=== PATIENT | female | born 1995 | race Caucasian/White ===

== ENCOUNTER 2020-12-19 16:16 | Inpatient (IN) | payer BC ==
[2020-12-19] MEDS: Lactated Ringers 1,000 ML IV SCH ×2 (17:00→23:55)
[2020-12-19] MEDS ORDERED: Water For Irrigation,Sterile 1,000 ML Container IRR PRN (17:23)
[2020-12-19] MEDS ORDERED: Sodium Chloride 0.9% 10 ML SDV IV PRN (17:23)
[2020-12-19] MEDS ORDERED: Sodium Chloride 0.9% 10 ML Syringe FLUSH PRN (17:23)
[2020-12-19] MEDS ORDERED: Carboprost Tromethamine 250 MCG/1 ML Amp IM PRN (17:23)
[2020-12-19] MEDS ORDERED: Lidocaine 1% 50 ML MDV INJECT PRN (17:23)
[2020-12-19] MEDS ORDERED: Misoprostol 200 MCG Tab PO PRN (17:23)
[2020-12-19] MEDS ORDERED: Ampicillin 2 GM in Sodium Chloride 0.9% 100 ML IV ONE (17:23)
[2020-12-19] MEDS ORDERED: Ondansetron 4 MG/2 ML SDV IVPUSH PRN (17:23)
[2020-12-19] MEDS ORDERED: Misoprostol 25 MCG (1/4 of 100 MCG) Tab VAG PRN ×2 (17:23)
[2020-12-19] MEDS ORDERED: Terbutaline 1 MG/ML SDV SUBCUT PRN (17:23)
[2020-12-19] MEDS ORDERED: Butorphanol 1 MG/ML SDV IVPUSH PRN (17:23)
[2020-12-19] MEDS ORDERED: Sodium Chloride 0.9% 2.5 ML Syringe FLUSH PRN (17:23)
[2020-12-19] MEDS ORDERED: Tranexamic Acid 1,000 MG in Sodium Chloride 0.9% 100 ML IV PRN (17:23)
[2020-12-19] MEDS ORDERED: Methylergonovine 0.2 MG/1 ML Amp IM PRN (17:23)
[2020-12-19] MEDS ORDERED: Oxytocin/0.9 % Sodium Chloride 30 UNIT/500 ML BAG IV SCH ×2 (17:30)
[2020-12-19] MEDS ORDERED: Ampicillin 2 GM Vial ONE (18:02)
[2020-12-19] MEDS ORDERED: Sodium Chloride 0.9% 100 ML ONE (18:04)
[2020-12-19] MEDS ORDERED: Ampicillin 1 GM in Sodium Chloride 0.9% 50 ML IV SCH (22:00)
[2020-12-20] MEDS ORDERED: Ibuprofen 400 MG Tab PO PRN (01:15)
[2020-12-20] MEDS ORDERED: Benzocaine/Menthol 20%-0.5% Spray 78 GM Cannister TOP PRN (01:15)
[2020-12-20] MEDS ORDERED: Acetaminophen 500 MG Tab PO PRN (01:15)
[2020-12-20] MEDS ORDERED: Lanolin 100% Cream 7 GM Tube TOP PRN (01:15)
[2020-12-20] MEDS ORDERED: Bisacodyl 10 MG Supp RECTAL PRN (01:15)
[2020-12-20] MEDS ORDERED: oxyCODONE 5 MG Tab PO PRN (01:15)
[2020-12-20] MEDS ORDERED: Witch Hazel Medicated Pads 40/Jar TOP PRN (01:15)
[2020-12-20] MEDS: Acetaminophen 500 MG Tab PO PRN ×3 (01:38→20:05)
[2020-12-20] MEDS: Ibuprofen 800 MG Tab PO PRN ×3 (01:39→23:00)
--- NOTE | 2020-12-20 02:48 | OR ---
SURGEON: Montez Nielsen MD DATE OF PROCEDURE: 12/20/2020 INDICATION FOR PROCEDURE: A 25-year-old G3, P2-0-0-2 at 40 weeks and 3 days, admitted for elective induction of labor. The patient reported leakage of small amount of fluid starting this morning, but was confirmed to have intact membranes with negative AmniSure. She was 3, 70, -2 and was started on Pitocin for induction of labor. She is GBS positive and received 2 doses of ampicillin. She otherwise had an uncomplicated . The patient became 5 cm dilated after about 5 hours with mild contractions, she then progressed very quickly. After about 30 minutes, she was fully dilated and having the urge to push and quickly delivered per nurse report. PREOPERATIVE DIAGNOSES: Morris intrauterine at 40 weeks and 3 days. POSTOPERATIVE DIAGNOSES: Morris intrauterine at 40 weeks and 3 days. PROCEDURES PERFORMED: Normal spontaneous vaginal delivery, repair of second-degree laceration. ANESTHESIA: Local anesthesia. FINDINGS: Viable female infant, score of 9 and 9. weight of 3530 g. ESTIMATED BLOOD LOSS: 300 mL. DESCRIPTION OF PROCEDURE: Upon my arrival to Labor and Delivery, the baby was doing well on the mom's chest. Appeared to be pink, crying, and moving all extremities. Per nurse report, did not have any complications during delivery. The umbilical cord was clamped and cut. Attempted to get umbilical cord gases, was only able to collect venous gases. The placenta was removed with gentle traction on the umbilical cord. Perineum was examined and she has a second-degree laceration. 20 mL of 1% lidocaine with epi was used for local anesthesia. Second degree was repaired with 3-0 Vicryl in usual fashion and hemostasis was confirmed after repair. The fundus was firm and below the umbilicus. The bleeding was light. The patient tolerated the procedure well, was given care instructions. QUINTIN / YAKELIN /[id number] MTDDante
[2020-12-20] MEDS: Docusate Sodium 100 MG Cap PO PRN ×2 (08:03→20:05)
[2020-12-21] MEDS: Acetaminophen 500 MG Tab PO PRN ×2 (03:15→10:13)
[2020-12-21] MEDS: Docusate Sodium 100 MG Cap PO PRN (10:13)
--- NOTE | 2020-12-21 13:14 | PCM.PNPP ---
- General Info Date of Service: 12/21/20 Subjective Update: Patient seen at bedside , bonding well with baby , , Normal lochia Functional Status: Reports: Pain Controlled, Tolerating Diet, Ambulating, Urinating - Review of Systems General: Reports: No Symptoms HEENT: Reports: No Symptoms Pulmonary: Reports: No Symptoms Cardiovascular: Reports: No Symptoms Gastrointestinal: Reports: No Symptoms Genitourinary: Reports: No Symptoms Musculoskeletal: Reports: No Symptoms Skin: Reports: No Symptoms Neurological: Reports: No Symptoms Psychiatric: Reports: No Symptoms - General Info Date of Service: 12/21/20 - Patient Data Vital Signs - Most Recent: Last Vital Signs Temp 35.8 C L 12/21/20 07:00 Pulse 67 12/21/20 07:00 Resp 18 12/21/20 07:00 BP 112/50 L 12/21/20 07:00 Pulse Ox 98 12/21/20 07:00 Weight - Most Recent: 84.822 kg Lab Results - Last 24 Hours: Laboratory Results - last 24 hr 12/19/20 12/21/20 Range/Units 17:00 05:03 Hgb 10.0 L (12.0-16.0) g/dL Hct 33.4 L (36.0-46.0) % RPR Non-Reac (Non-Reac) Med Orders - Current: Current Medications Acetaminophen (Acetaminophen 500 Mg Tab) 500 mg PO Q4H PRN PRN Reason: Pain (mild 1-3) Acetaminophen (Acetaminophen 500 Mg Tab) 1,000 mg PO Q4H PRN PRN Reason: Pain (mild 1-3) Last Admin: 12/21/20 10:13 Dose: 1,000 mg Documented by: Benzocaine/Menthol (Benzocaine/Menthol 20%-0.5% [place] 78 Gm Cannister) 78 gm TOP ASDIRECTED PRN PRN Reason: Perineal Comfort Measure Last Admin: 12/20/20 01:34 Dose: 1 can Documented by: Bisacodyl (Bisacodyl 10 Mg Supp) 10 mg RECTAL ONETIME PRN PRN Reason: Constipation Docusate Sodium (Docusate Sodium 100 Mg Cap) 100 mg PO Q12H PRN PRN Reason: Constipation Last Admin: 12/21/20 10:13 Dose: 100 mg Documented by: Emollient Ointment (Lanolin 100% Cream 7 Gm Tube) 0 gm TOP ASDIRECTED PRN PRN Reason: Sore Nipples Last Admin: 12/20/20 08:03 Dose: 7 gm Documented by: Oxytocin/Sodium Chloride (Oxytocin 30 Unit/500 Ml-Ns) 30 unit in 500 mls @ 2 mls/hr IV TITRATE ANAND; Protocol Last Titration: 12/19/20 21:30 Dose: 8 munits/min, 8 mls/hr Documented by: Ampicillin Sodium 1 gm/ Sodium (Chloride) 50 mls @ 100 mls/hr IV Q4H ANAND Last Admin: 12/19/20 22:07 Dose: 100 mls/hr Documented by: Ibuprofen (Ibuprofen 400 Mg Tab) 400 mg PO Q4H PRN PRN Reason: Pain (mild 1-3) Ibuprofen (Ibuprofen 800 Mg Tab) 800 mg PO Q6H PRN PRN Reason: Pain (mild 1-3) Last Admin: 12/20/20 23:00 Dose: 800 mg Documented by: Misoprostol (Misoprostol 25 Mcg (1/4 Of 100 Mcg) Tab) 25 mcg VAG ONETIME PRN PRN Reason: Cervical Ripening Misoprostol (Misoprostol 25 Mcg (1/4 Of 100 Mcg) Tab) 25 mcg VAG Q4H PRN PRN Reason: Cervical Ripening Oxycodone HCl (Oxycodone 5 Mg Tab) 5 mg PO Q2H PRN PRN Reason: Pain (severe 7-10) Sodium Chloride (Sodium Chloride 0.9% 10 Ml Syringe) 10 ml FLUSH ASDIRECTED PRN PRN Reason: Keep Vein Open Sodium Chloride (Sodium Chloride 0.9% 2.5 Ml Syringe) 2.5 ml FLUSH ASDIRECTED PRN PRN Reason: Keep Vein Open Sodium Chloride (Sodium Chloride 0.9% 10 Ml Sdv) 10 ml IV ASDIRECTED PRN PRN Reason: IV Use Terbutaline Sulfate (Terbutaline 1 Mg/Ml Sdv) 0.25 mg SUBCUT ASDIRECTED PRN PRN Reason: Tacysystole [place] ([place] Medicated Pads 40/Jar) 1 pad TOP ASDIRECTED PRN PRN Reason: comfort care Last Admin: 12/20/20 01:35 Dose: 1 can Documented by: Discontinued Medications Ampicillin Sodium (Ampicillin 2 Gm Vial) Confirm Administered Dose 2 gm .ROUTE .[facility] ONE Stop: 12/19/20 18:03 Last Admin: 12/19/20 18:16 Dose: 2 gm Documented by: Butorphanol Tartrate (Butorphanol 1 Mg/Ml Sdv) 1 mg IVPUSH Q1H PRN PRN Reason: Pain (severe 7-10) Carboprost Tromethamine (Carboprost Tromethamine 250 Mcg/1 Ml Amp) 250 mcg IM ASDIRECTED PRN PRN Reason: Post Hemorrhage Oxytocin/Sodium Chloride (Oxytocin 30 Unit/500 Ml-Ns) 30 unit in 500 mls @ 999 mls/hr IV TITRATE [facility] Tranexamic Acid 1,000 mg/ (Sodium Chloride) 110 mls @ 660 mls/hr IV ONETIME PRN PRN Reason: Bleeding Ampicillin Sodium 2 gm/ Sodium (Chloride) 100 mls @ 200 mls/hr IV ONETIME ONE Stop: 12/19/20 17:52 Lactated Ringer's (Ringers, Lactated) 1,000 mls @ 150 mls/hr IV ASDIRECTED [facility] Last Admin: 12/19/20 23:55 Dose: 150 mls/hr Documented by: Sodium Chloride (Normal Saline) Confirm Administered Dose 100 mls @ as directed .ROUTE .STK-MED ONE Stop: 12/19/20 18:05 Last Admin: 12/19/20 18:17 Dose: 200 mls/hr Documented by: Lidocaine HCl (Lidocaine 1% 50 Ml Mdv) 50 ml INJECT ONETIME PRN PRN Reason: Laceration repair Last Admin: 12/20/20 00:53 Dose: 50 ml Documented by: Methylergonovine Maleate (Methylergonovine 0.2 Mg/1 Ml Amp) 0.2 mg IM ASDIRECTED PRN PRN Reason: Post Hemorrhage Misoprostol (Misoprostol 200 Mcg Tab) 200 mcg PO ONETIME PRN PRN Reason: Post Hemorrhage Ondansetron HCl (Ondansetron 4 Mg/2 Ml Sdv) 4 mg IVPUSH Q6H PRN PRN Reason: Nausea/Vomiting Sterile Water (Water For Irrigation,Sterile 1,000 Ml Container) 1,000 ml IRR ASDIRECTED PRN PRN Reason: delivery - Interaction Support Person: Significant Other - Recovery Exam Fundal Tone: Firm Fundal Level: At Umbilicus Fundal Placement: Midline Lochia Amount: Scant Lochia Color: Rubra/Red Perineum Description: Other (see below) Other Perinuem Description: 2nd degree laceration repaired Episiotomy/Laceration: Approximated Bladder Status: Voiding Urinary Elimination: Voided - Exam General: Alert HEENT: Pupils Equal Neck: Supple Lungs: Clear to Auscultation, Normal Respiratory Effort Cardiovascular: Regular Rate, Regular Rhythm GI/Abdominal Exam: Normal Bowel Sounds Extremities: Normal Inspection Neurological: No New Focal Deficit Psy/Mental Status: Alert - Problem List & Annotations (1) Vaginal delivery SNOMED Code(s): 211993659 Code(s): O80 - ENCOUNTER FOR FULL-TERM UNCOMPLICATED DELIVERY Status: Acute Current Visit: No - Problem List Review Problem List Initiated/Reviewed/Updated: Yes - Assessment Assessment:: 25yo P3 s/p PPD1 doing well , stable - Plan Plan:: Routine Discharge home today
== END 2020-12-21 13:35 | disposition home or self-care (01) | DRG 560 ==
LOC: MW.OB 16:16 → MW.OBCHECK 16:16 → MW.OB 17:23 → OBSVTOIN 12-20 00:28 → MW.OB 12-20 04:13
PROVIDERS: ADMIT Obstetrics & Gynecology; ATTEND Obstetrics & Gynecology
PROC: 10E0XZZ Delivery of Products of Conception, External Approach (ICD-10-PCS; principal; 2020-12-20)
PROC: 10907ZC Drainage of Amniotic Fluid, Therapeutic from Products of Conception, Via Natural or Artificial Opening (ICD-10-PCS; 2020-12-20)
PROC: 0KQM0ZZ Repair Perineum Muscle, Open Approach (ICD-10-PCS; 2020-12-20)
PROC: 3E033VJ Introduction of Other Hormone into Peripheral Vein, Percutaneous Approach (ICD-10-PCS; 2020-12-20)
DX: O48.0 Post-term pregnancy (principal); Z3A.40 40 weeks gestation of pregnancy; Z37.0 Single live birth; O99.824 Streptococcus B carrier state complicating childbirth; O70.1 Second degree perineal laceration during delivery; Z20.822 Contact with and (suspected) exposure to COVID-19
CPT/HCPCS: 36415; 59025; 59409; 84112; 85014; 85018; 85027; 86592; 86850; 86900; 86901; A9270-GY; J0290; J2001; J2590; J7120; U0002

== ENCOUNTER 2021-06-29 06:55 | Day surgery (SDC) | payer BC ==
[~2021-06-29 06:55] MED LIST: Lactated Ringers 1,000 ML IV SCH
[2021-06-29] MEDS ORDERED: Scopolamine 1.5 MG Transdermal Patch ONE (07:15)
[2021-06-29] MEDS ORDERED: Methylene Blue 50 MG/10 ML Ampule ONE (07:22)
[2021-06-29] MEDS ORDERED: Bupivacaine 0.25% 10 ML SDV ONE (07:22)
[2021-06-29 07:25] LABS: BLOOD UREA NITROGEN,BUN 14 mg/dL (7.0-18.0); CARBON DIOXIDE,CO2 24.8 mmol/L (21.0-32.0); CHLORIDE,CL 107 mmol/L (98-107); GLUCOSE RANDOM 86 mg/dL (74-106); POTASSIUM,K 3.8 mmol/L (3.5-5.1); SODIUM,NA 143 mmol/L (136-145)
[2021-06-29] MEDS ORDERED: fentaNYL 100 MCG/2 ML SDV ONE (07:26)
[2021-06-29] MEDS ORDERED: Rocuronium Bromide 50 MG/5 ML Syringe ONE (07:26)
[2021-06-29] MEDS ORDERED: Dexamethasone 4 MG/ML 5 ML MDV ONE (07:26)
[2021-06-29] MEDS ORDERED: Midazolam 1 MG/ML 2 ML SDV ONE (07:26)
[2021-06-29] MEDS ORDERED: Propofol 200 MG/20 ML SDV ONE (07:26)
[2021-06-29] MEDS ORDERED: Dexmedetomidine 200 MCG/2 ML SDV ONE (07:26)
[2021-06-29] MEDS ORDERED: Water For Injection, Sterile 20 ML ONE (07:27)
[2021-06-29] MEDS ORDERED: Esmolol 100 MG/10 ML SDV ONE (07:28)
[2021-06-29] MEDS ORDERED: Lidocaine 2% 5 ML SDV ONE (07:28)
[2021-06-29] MEDS ORDERED: HYDROmorphone 1 MG/ML Syringe IVPUSH PRN (07:37)
[2021-06-29] MEDS ORDERED: Metoclopramide 10 MG/2 ML SDV IVPUSH PRN (07:37)
[2021-06-29] MEDS ORDERED: Naloxone 0.4 MG/ML SDV IVPUSH PRN (07:37)
[2021-06-29] MEDS ORDERED: Ondansetron 4 MG/2 ML SDV IVPUSH PRN (07:37)
[2021-06-29] MEDS ORDERED: Morphine 4 MG/ML VIAL IVPUSH PRN (07:37)
[2021-06-29] MEDS ORDERED: fentaNYL 100 MCG/2 ML SDV IVPUSH PRN (07:37)
[2021-06-29] MEDS ORDERED: Albuterol 0.083% 2.5 MG/3 ML Neb Soln NEB PRN (07:37)
--- NOTE | 2021-06-29 07:37 | PCM.PREANE ---
Preanesthetic Assessment - Anesthesia/Transfusion/Family Hx Anesthesia History: Prior Anesthesia Without Reaction Transfusion History: No Prior Transfusion(s) - Review of Systems General: No Symptoms Pulmonary: No Symptoms Cardiovascular: No Symptoms Gastrointestinal: No Symptoms Neurological: No Symptoms Other: Reports: None - Physical Assessment NPO Status Date: 06/29/21 NPO Status Time: 00:00 Vital Signs: Last Vital Signs Temp 97.3 F 06/29/21 07:26 Pulse 75 06/29/21 07:26 Resp 16 06/29/21 07:26 BP 110/67 06/29/21 07:26 Pulse Ox 97 06/29/21 07:26 Height: 5 ft 4 in Weight: 163 lb ASA Class: 1 Mental Status: Alert & Oriented x3 Airway Class: Mallampati = 1 Dentition: Reports: Normal Dentition Thyro-Mental Finger Breadths: 3 Mouth Opening Finger Breadths: 3 ROM/Head Extension: Full Lungs: Clear to Auscultation, Normal Respiratory Effort Cardiovascular: Regular Rate, Regular Rhythm - Lab Values: Laboratory Last Values Sodium 143 mmol/L (136-145) 06/29/21 06:28 Potassium 3.8 mmol/L (3.5-5.1) 06/29/21 06:28 Chloride 107 mmol/L (98-107) 06/29/21 06:28 Carbon Dioxide 24.8 mmol/L (21.0-32.0) 06/29/21 06:28 BUN 14 mg/dL (7.0-18.0) 06/29/21 06:28 Creatinine 0.8 mg/dL (0.6-1.0) 06/29/21 06:28 Est Cr Clr Drug Dosing 94.44 mL/min 06/29/21 06:28 Estimated GFR (MDRD) > 60.0 ml/min 06/29/21 06:28 Glucose 86 mg/dL (74-106) 06/29/21 06:28 Calcium 9.0 mg/dL (8.5-10.1) 06/29/21 06:28 Total Bilirubin 0.2 mg/dL (0.2-1.0) 06/29/21 06:28 AST 14 IU/L (15-37) L 06/29/21 06:28 ALT 19 IU/L (14-63) 06/29/21 06:28 Alkaline Phosphatase 103 U/L (46-116) 06/29/21 06:28 Total Protein 7.6 g/dL (6.4-8.2) 06/29/21 06:28 Albumin 3.9 g/dL (3.4-5.0) 06/29/21 06:28 Globulin 3.7 g/dL (2.6-4.0) 06/29/21 06:28 Albumin/Globulin Ratio 1.1 (0.9-1.6) 06/29/21 06:28 SARS-CoV-2 RNA ([place]) NEGATIVE (NEGATIVE) 06/29/21 06:08 - Allergies Allergies/Adverse Reactions: Allergies Allergy/AdvReac Type Severity Reaction Status Date / Time No Known Allergies Allergy Verified 06/29/21 07:27 - Acknowledgements Anesthesia Type Planned: General Anesthesia Pt an Appropriate Candidate for the Planned Anesthesia: Yes Alternatives and Risks of Anesthesia Discussed w Pt/Guardian: Yes Pt/Guardian Understands and Agrees with Anesthesia Plan: Yes PreAnesthesia Questionnaire - Past Health History Medical/Surgical History: Denies Medical/Surgical History HEENT History: Reports: Other (See Below) Other HEENT History: wears glasses Cardiovascular History: Reports: None Respiratory History: Reports: Asthma Other Respiratory History: Exercise induced asthma in high school. No current treatment/inhalers used. Gastrointestinal History: Reports: None Genitourinary History: Reports: None [employer]STRU[employer]JECT [employer]ORD[employer]ATOR History: Reports: , Other (See Below) Other OB/BYN History: breast feeding Musculoskeletal History: Reports: None Neurological History: Reports: None Psychiatric History: Reports: None Endocrine/Metabolic History: Reports: None Hematologic History: Reports: None Immunologic History: Reports: None Oncologic (Cancer) History: Reports: None Dermatologic History: Reports: None - Infectious Disease History Infectious Disease History: Reports: Chicken Pox Other Infectious Disease History: Chicken pox vaccine as child - Past Surgical History Head Surgeries/Procedures: Reports: None HEENT Surgical History: Reports: Myringotomy w Tube(s), Oral Surgery Other HEENT Surgeries/Procedures: wisdom teeth extraction, Cardiovascular Surgical History: Reports: None Respiratory Surgical History: Reports: None GI Surgical History: Reports: None Female Surgical History: Reports: None Endocrine Surgical History: Reports: None Neurological Surgical History: Reports: None Musculoskeletal Surgical History: Reports: None Oncologic Surgical History: Reports: None Dermatological Surgical History: Reports: None - SUBSTANCE USE Tobacco Use Status *Q: Light Tobacco User Tobacco Use Within Last Twelve Months: Vaping - HOME MEDS Home Medications: Home Meds . [No Known Home Meds] 06/23/21 [History] - CURRENT (IN HOUSE) MEDS Current Meds: Current Medications Lactated Ringer's (Ringers, Lactated) 1,000 mls @ 125 mls/hr IV ASDIRECTED ANAND Last Admin: 06/29/21 07:27 Dose: 125 mls/hr Documented by: Discontinued Medications Bupivacaine HCl (Bupivacaine 0.25% 10 Ml Sdv) Confirm Administered Dose 30 ml .ROUTE .STK-MED ONE Stop: 06/29/21 07:23 Dexamethasone (Dexamethasone 4 Mg/Ml 5 Ml Mdv) Confirm Administered Dose 20 mg .ROUTE .STK-MED ONE Stop: 06/29/21 07:27 Dexmedetomidine HCl (Dexmedetomidine 200 Mcg/2 Ml Sdv) Confirm Administered Dose 200 mcg .ROUTE .STK-MED ONE Stop: 06/29/21 07:27 Esmolol HCl (Esmolol 100 Mg/10 Ml Sdv) Confirm Administered Dose 100 mg .ROUTE .STK-MED ONE Stop: 06/29/21 07:29 Fentanyl (Fentanyl 100 Mcg/2 Ml Sdv) Confirm Administered Dose 100 mcg .ROUTE .STK-MED ONE Stop: 06/29/21 07:27 Sterile Water (Sterile Water For Injection) Confirm Administered Dose 20 mls @ as directed .ROUTE .STK-MED ONE Stop: 06/29/21 07:28 Lidocaine (Lidocaine 2% 5 Ml Sdv) Confirm Administered Dose 5 ml .ROUTE .STK-MED ONE Stop: 06/29/21 07:29 Methylene Blue (Methylene Blue 50 Mg/10 Ml Ampule) Confirm Administered Dose 50 mg .ROUTE .STK-MED ONE Stop: 06/29/21 07:23 Midazolam HCl (Midazolam 1 Mg/Ml 2 Ml Sdv) Confirm Administered Dose 2 mg .ROUTE .STK-MED ONE Stop: 06/29/21 07:27 Propofol (Propofol 200 Mg/20 Ml Sdv) Confirm Administered Dose 200 mg .ROUTE .STK-MED ONE Stop: 06/29/21 07:27 Rocuronium [place] (Rocuronium [place] 50 Mg/5 Ml Syringe) Confirm Administered Dose 50 mg .ROUTE .STK-MED ONE Stop: 06/29/21 07:27 Scopolamine (Scopolamine 1.5 Mg Transdermal Patch) Confirm Administered Dose 1.5 mg .ROUTE .[facility] ONE Stop: 06/29/21 07:16
[2021-06-29] MEDS ORDERED: Ketorolac 30 MG/ML SDV ONE (08:39)
[2021-06-29] MEDS ORDERED: Sugammadex Sodium 200 MG/2 ML VIAL ONE (08:39)
[2021-06-29] MEDS ORDERED: Ondansetron 4 MG/2 ML SDV ONE (08:39)
[2021-06-29] MEDS ORDERED: Octyl 2-Cyanoacrylate 1 Tube ONE (08:50)
--- NOTE | 2021-06-29 09:09 | PCM48HPAN ---
Post Anesthesia Note - EVALUATION WITHIN 48HRS OF ANESTHETIC Vital Signs in Normal Range: Yes Patient Participated in Evaluation: Yes Respiratory Function Stable: Yes Airway Patent: Yes Cardiovascular Function Stable: Yes Hydration Status Stable: Yes Pain Control Satisfactory: Yes Nausea and Vomiting Control Satisfactory: Yes Mental Status Recovered: Yes Vital Signs: Last Vital Signs Temp 97.0 F 06/29/21 09:01 Pulse 54 L 06/29/21 09:07 Resp 8 L 06/29/21 09:07 BP 81/40 L 06/29/21 09:07 Pulse Ox 99 06/29/21 09:07
--- NOTE | 2021-06-29 09:09 | PCM.POSTAN ---
POST ANESTHESIA ASSESSMENT - MENTAL STATUS Mental Status: Alert, Oriented - VITAL SIGNS Vital Signs: Last Vital Signs Temp 97.0 F 06/29/21 09:01 Pulse 54 L 06/29/21 09:07 Resp 8 L 06/29/21 09:07 BP 81/40 L 06/29/21 09:07 Pulse Ox 99 06/29/21 09:07 - RESPIRATORY Respiratory Status: Respiratory Rate WNL, Airway Patent, O2 Saturation Stable - CARDIOVASCULAR CV Status: Pulse Rate WNL, Blood Pressure Stable - GASTROINTESTINAL GI Status: No Symptoms - POST OP HYDRATION Hydration Status: Adequate & Stable
[2021-06-29] MEDS ORDERED: Acetaminophen/HYDROcodone 325-5 MG Tab PO PRN (09:29)
--- NOTE | 2021-06-29 14:23 | OR ---
SURGEON: Montez Nielsen MD DATE OF PROCEDURE: 06/29/2021 INDICATION FOR PROCEDURE: 25-year-old G3, P3, with perforated IUD, presenting for scheduled surgery. The patient had IUD placed after her last delivery in December of this year. She denied any issues but could not find the strings and presented to the clinic. The IUD strings were not visualized on exam and a pelvic ultrasound was performed which shows the IUD appeared to be perforated and located posterior to the uterine fundus. Discussed with the patient that IUD would need to be removed laparoscopically from the peritoneal cavity. The patient was agreeable. PREOPERATIVE DIAGNOSIS: Perforated intrauterine device. POSTOPERATIVE DIAGNOSIS: Perforated intrauterine device. PROCEDURE PERFORMED: Diagnostic laparoscopy, removal of intrauterine device. ANESTHESIA: General anesthesia. ANESTHESIOLOGIST: Dr. Riky Merino. INTRAVENOUS FLUIDS: 1 L. ESTIMATED BLOOD LOSS: Minimal. URINE OUTPUT: 25 mL. FINDINGS: Uterus is small size and retroverted. Normal-appearing fallopian tubes and ovaries. The IUD was located in the posterior cul-de-sac and was completely in the peritoneal cavity including the strings. DESCRIPTION OF PROCEDURE: The procedure was discussed with the patient. Risks of bleeding, infection, DVTs, injury to surrounding organs including bladder, bowel, ureter were discussed with the patient. Questions answered and consent signed. The patient was taken to the operating room. Antibiotics were not indicated. She underwent general anesthesia with no complications. She was placed in dorsal lithotomy position with her legs supported using stirrups. She was prepped with chlorhexidine and Betadine and draped in the usual sterile fashion. A straight catheter was used to empty the bladder. Bimanual exam showed a small uterus and no adnexal masses. A bivalve speculum was used to visualize the cervix, and the cervix was normal appearing without any lesions. There were no IUD strings seen. A gauze on a ring forceps was placed in the vaginal vault for manipulation. Attention was then turned to the abdomen. 3 mL of 10% Marcaine was injected subcutaneously below the umbilicus, and a 5 mm incision was made. The Veress needle was used for entry. Intraperitoneal location was confirmed with saline drop test and low opening pressure. Pneumoperitoneum was then established with CO2 gas to 15 mmHg. A 5 mm trocar was placed under laparoscopic visualization. The entry side did not show any visceral or vascular injury. Another 5 mm trocar was placed in the left lower quadrant under laparoscopic visualization. Survey of the abdomen noted normal appearing uterus and bilateral ovaries and fallopian tubes. The uterus was very retroverted. Grasper was used to sweep the bowel away from the pelvis. The IUD was visualized in the posterior cul-de-sac entirely away from the uterus and not adhered to any surrounding structures. A grasper was used to grasp the strings of the IUD, and the IUD was removed entirely from the left lower quadrant port. The IUD was examined and noted to be intact and sent to Pathology. The pelvis was again examined and no sites of bleeding were seen. Pneumoperitoneum was released and all instruments were removed. The skin incisions were closed with 4-0 Monocryl in subcuticular fashion. Dermabond was applied over the incision. The patient tolerated the procedure well and was awakened from anesthesia without difficulty. She was taken to the recovery room in stable condition. QUINTIN HAMLIN /[id number] MTDD
== END 2021-06-29 11:45 | disposition home or self-care (01) ==
LOC: MW.SDS 06:55
PROVIDERS: ATTEND Obstetrics & Gynecology
DX: T83.32XA Displacement of intrauterine contraceptive device, initial encounter (principal); J45.909 Unspecified asthma, uncomplicated; Z79.899 Other long term (current) drug therapy; Z98.890 Other specified postprocedural states; Z87.891 Personal history of nicotine dependence; Z01.812 Encounter for preprocedural laboratory examination; Z20.822 Contact with and (suspected) exposure to COVID-19
CPT/HCPCS: 36415; 49329; 80053; 86850; 86900; 86901; 87635; A9270; J0131; J1100; J1885; J2250; J2405; J2704; J3490; J7030; J7120; J3010; U0002